=== PATIENT | female | born 2005 | race Caucasian/White ===

== ENCOUNTER → 2023-01-06 | Outpatient (CLI) | payer OTHER ==
[~2023-01-06] MED LIST: Crutch1 EACH MISC
[2023-01-08 03:09] LABS: NEISSERIA GONORRHOEAE, NAA Negative (Negative)
[2023-01-08 22:07] LABS: GONOCOCCUS BY NAA Negative (Negative); TRICH VAG BY NAA Negative (Negative)
[2023-01-10 14:46] LABS: CHLAMYDIA TRACHOMATIS, NAA Positive (Negative)
[2023-01-10 14:47] LABS: CHLAMYDIA BY NAA Positive (Negative)
== END ==
LOC: LAB SHORT 17:43 → LAB 17:43
PROVIDERS: Family Medicine
DX: Z20.2 Contact with and (suspected) exposure to infections with a predominantly sexual mode of transmission (principal)
CPT/HCPCS: 87491; 87591; 87661

== ENCOUNTER → 2023-08-31 | Outpatient (CLI) | payer OTHER ==
[2023-09-02 13:15] LABS: APTIMA MEDIA TYPE Unisex Swab; C. TRACHOMATIS BY TMA Negative (Negative); N. GONORRHOEAE BY TMA Negative (Negative); SPECIMEN SOURCE Vaginal; T. VAGINALIS BY TMA Negative (Negative)
== END ==
LOC: LAB SHORT 14:02 → LAB 14:02
PROVIDERS: Family Medicine
DX: Z20.2 Contact with and (suspected) exposure to infections with a predominantly sexual mode of transmission (principal)
CPT/HCPCS: 87491; 87591; 87661

== ENCOUNTER → 2024-04-19 | Outpatient (CLI) | payer OTHER ==
[2024-04-20 14:52] LABS: BASOPHILS ABSOLUTE AUTO 0.06 K/mm3 (0.00-0.23); BASOPHILS PERCENT AUTO 2 % (0-2); EOSINOPHILS ABSOLUTE AUTO 0.25 K/mm3 (0.00-0.68); EOSINOPHILS PERCENT AUTO 7 % (0-6); Hematocrit 26.9 % (33.0-51.0); Hemoglobin 9.2 g/dL (11.5-16.0); IMMATURE GRAN PERCENT AUTO 3 % (0-1); LYMPHOCYTES ABSOLUTE AUTO 1.37 K/mm3 (0.84-5.20); LYMPHOCYTES PERCENT AUTO 40 % (21-46); MONOCYTES ABSOLUTE AUTO 0.39 K/mm3 (0.16-1.47); MONOCYTES PERCENT AUTO 11 % (4-13); Mean Corpuscular HGB 29.4 pg (26.0-34.0); Mean Corpuscular HGB Conc 34.2 g/dL (31.5-36.5); Mean Corpuscular Volume 86 fL (80-100); NEUTROPHILS ABSOLUTE AUTO 1.27 K/mm3 (1.96-9.15); NEUTROPHILS PERCENT AUTO 37 % (41-73); RDW Coefficient Variation 12.1 % (11.7-14.2); Red Blood Cell Count 3.13 M/mm3 (3.80-5.20); White Blood Cell Count 3.44 K/mm3 (4.00-11.30)
[2024-04-20 15:36] LABS: Mean Platelet Volume 11.3 fL (9.1-12.4); Platelet Count 215 K/mm3 (150-400)
== END ==
LOC: LAB 12:46 → LAB SHORT 12:46
PROVIDERS: Advanced Practice Midwife
DX: Z34.92 Encounter for supervision of normal pregnancy, unspecified, second trimester (principal)
CPT/HCPCS: 85025

== ENCOUNTER 2024-05-31 00:05 | Day surgery (SDC) | payer OTHER ==
[2024-05-31] MEDS ORDERED: NS IV SCH (06:00)
[2024-05-31] MEDS ORDERED: IRON SUCROSE COMPLEX IV SCH (06:00)
[2024-05-31 08:22] VITALS: BP 113/64
== END 2024-05-31 10:19 | disposition home or self-care (01) ==
LOC: ATC 00:05
DX: O99.019 Anemia complicating pregnancy, unspecified trimester (principal); D50.9 Iron deficiency anemia, unspecified; Z88.0 Allergy status to penicillin; Z88.2 Allergy status to sulfonamides; Z79.899 Other long term (current) drug therapy
CPT/HCPCS: 96365; 96366; J1756; J7050

== ENCOUNTER 2024-06-04 01:31 | Day surgery (SDC) | payer OTHER ==
[2024-06-04] MEDS ORDERED: NS IV SCH (09:00)
[2024-06-04] MEDS ORDERED: IRON SUCROSE COMPLEX IV SCH (09:00)
[2024-06-04 16:37] VITALS: BP 97/74
== END 2024-06-04 18:12 | disposition home or self-care (01) ==
LOC: ATC 01:31
DX: O99.019 Anemia complicating pregnancy, unspecified trimester (principal); D50.9 Iron deficiency anemia, unspecified; Z3A.00 Weeks of gestation of pregnancy not specified; Z88.0 Allergy status to penicillin; Z88.2 Allergy status to sulfonamides; Z79.899 Other long term (current) drug therapy
CPT/HCPCS: 96365; 96366; J1756; J7050

== ENCOUNTER 2024-06-05 02:30 | Day surgery (SDC) | payer OTHER ==
[2024-06-05] MEDS ORDERED: NS IV SCH (06:00)
[2024-06-05] MEDS ORDERED: IRON SUCROSE COMPLEX IV SCH (06:00)
[2024-06-05 14:10] VITALS: BP 102/59
== END 2024-06-05 16:15 | disposition home or self-care (01) ==
LOC: ATC 02:30
DX: O99.013 Anemia complicating pregnancy, third trimester (principal); Z3A.29 29 weeks gestation of pregnancy; Z88.0 Allergy status to penicillin; Z88.2 Allergy status to sulfonamides
CPT/HCPCS: 96365; 96366; J1756; J7050

== ENCOUNTER → 2024-06-28 | Outpatient (CLI) | payer OTHER | END | disposition home or self-care (01) | LOC: LAB SHORT 10:50 → LAB 10:50 | DX: O09.90 Supervision of high risk pregnancy, unspecified, unspecified trimester (principal) | CPT/HCPCS: 87081; 87150; 87184 ==